=== PATIENT | female | born 1990 | race Caucasian/White ===

== ENCOUNTER 2018-06-11 11:31 | Emergency (ER) | payer OTHER, MEDICAID, SELFPAY ==
[2018-06-11 11:42] VITALS: BP 128/80; PULSE 103; RESP 18; TEMP 36.8; O2SAT 100; BMI 17.4
[2018-06-11 13:02] LABS: Add Manual Diff / Slide Review NO; Basophils Absolute Auto 0 /uL (0-100); Basophils Percent Auto 0.7 % (0-2); Eosinophils Absolute Auto 200 /uL (0-450); Eosinophils Percent Auto 3.5 % (2-4); Hematocrit 44.2 % (36-46); Hemoglobin 14.8 g/dL (12.0-16.0); Lymphocytes Absolute Auto 1300 /uL (1100-4500); Lymphocytes Percent Auto 29.6 % (25-40); Mean Corpuscular HGB Conc 33.4 % (30-36); Mean Corpuscular Hemoglobin 28.3 PG (26-34); Mean Corpuscular Volume 84.8 fL (80-100); Monocytes Absolute Auto 300 /uL (0-900); Monocytes Percent Auto 6.6 % (3-14); Neutrophils Absolute Auto 2700 /uL (1500-7000); Neutrophils Percent Auto 59.6 % (50-75); Platelet Count 243 X10^3/uL (150-400); Red Blood Cell Count 5.21 X10^6/uL (4.0-5.2); Red Cell Distribution Width 14.1 % (11.6-14.8); White Blood Cell Count 4.6 X10^3/uL (4.5-11.0)
[2018-06-11 13:06] LABS: Alanine Aminotransferase 21 IU/L (9-52); Albumin 4.9 g/dL (3.5-5.0); Albumin Globulin Ratio 1.3 (1.0-2.8); Alkaline Phosphatase 44 U/L (38-126); Aspartate Aminotransferase 22 IU/L (14-36); BUN Creatinine Ratio 15.7 (6-22); Bilirubin Total 0.5 mg/dL (0.2-1.3); Blood Urea Nitrogen 11 mg/dL (7-17); Calcium 9.4 mg/dL (8.4-10.2); Carbon Dioxide 26 mmol/L (22-32); Chloride 102 mmol/L (98-107); Estimated Glomerular Filt Rate > 60.0 mL/min (>60); Globulin 3.9 g/dL (1.7-4.1); Glucose 80 mg/dL (70-100); HEMOLYSIS < 15 (0-50); Lipase 83 U/L (23-300); Potassium 3.6 mmol/L (3.4-5.1); Sodium 141 mmol/L (137-145); Total Protein 8.8 g/dL (6.3-8.2)
--- NOTE | 2018-06-11 13:08 | ED_ITS ---
HPI - Abdominal Pain General Chief Complaint: Abdominal Pain Stated Complaint: Severe stomach pains Time Seen by Provider: 06/11/18 12:14 Source: patient Mode of arrival: ambulatory Limitations: no limitations History of Present Illness HPI narrative: Patient presents the emergency department complaining of ongoing nausea, right-sided flank pain, and constipation. She states that the pain has gotten worse since last night, she is concerned about this. Patient has a longstanding history of IBS, and does note that she is dealing with numerous stressors in her life. She states that for the last couple of years, she has had trouble with ongoing nausea, which she has generally been controlled with oral dissolving Zofran. However, patient states that she is having to take the Zofran every day before she eats, in order to keep her food down. Patient states that she seen her primary doctor for this, as well as a specialist specialty she does not know coma for right upper quadrant ultrasounds and colonoscopy, which have not revealed any specific pathology. Patient states she has also had ultrasounds of her pelvis and has thought to possibly fracture sepsis. Patient states she did have an IUD in place which she removed a couple of months ago. She states she has tried oral laxatives and [id number] enemas at home to try to have bowel movement, but his only really had mucus since the 6th of this month. Patient does note that she has not really been eating anything for weeks, because of the nausea. Patient states her primary care physician has referred her to an OBGYN, whom she has not seen yet. Patient is not certain whether she has seen a GI specialist or not. No other complaints at this time. No fevers. No chest pain. Patient states she is otherwise healthy as far she knows. Related Data Previous Rx's Medication Instructions Recorded ketorolac 10 mg PO Q4-6H PRN 7 Days tab 06/11/18 Allergies Allergy/AdvReac Type Severity Reaction Status Date / Time prochlorperazine Allergy Verified 06/11/18 11:46 [From Compazine] Review of Systems Constitutional Denies chills, Denies fever(s), Denies lethargy and Denies weakness Eyes Denies change in vision, Denies eye discharge, Denies irritation and Denies loss of vision ENT Ears, Nose, Mouth, and Throat: Denies change in voice, Denies neck pain and Denies sore throat Cardiovascular Denies chest pain, Denies irregular heart rhythm, Denies lightheadedness, Denies palpitations, Denies dyspnea, Denies dyspnea on exertion and Denies orthopnea Respiratory Denies cough, Denies dyspnea, Denies dyspnea on exertion and Denies wheezing Gastrointestinal Gastrointestinal: Reports abdominal pain, Denies change in bowel habits, Reports constipation, Denies diarrhea, Reports nausea and Reports vomiting Genitourinary Denies hematuria, Denies flank pain, Denies urinary incontinence and Denies urinary urgency Musculoskeletal Denies neck pain Integumentary/Breasts Denies pruritus, Denies erythema, Denies rash and Denies wounds Neurologic Denies confusion, Denies loss of vision and Denies weakness Psychiatric Denies anxiety, Denies confusion, Denies depression, Denies homicidal ideation and Denies suicidal ideation Endocrine Denies palpitations Hematologic/Lymphatic Denies easy bruising Allergic/Immunologic Denies wheezing [facility] Medical History Normal colonoscopy (Acute) Abdominal pain (Acute) Nausea (Acute) IBS (irritable bowel syndrome) (Acute) Constipation (Acute) Social History Smoking Status: Former smoker Social History Smoking Status: Former smoker Exam Initial Vital Signs Initial Vital Signs: Vital Signs Temperature 98.2 F 06/11/18 11:42 Pulse Rate 103 H 06/11/18 11:42 Respiratory Rate 18 06/11/18 11:42 Blood Pressure 128/80 06/11/18 11:42 Pulse Oximetry 100 06/11/18 11:42 Const General: cooperative and well developed Nutritional Appearance: thin Orientation: alert, awake, oriented x3 and not confused [facility] Head: normocephalic and atraumatic Ears: external ears normal and TM's normal bilaterally Nose: external nose normal and No nasal discharge Face and sinus: sinuses nontender, face symmetric, no sinus tenderness and No dry mucous membranes Mouth: oral mucosae normal and moist mucous membranes Teeth and gingiva: dentition normal Throat: tonsils normal and uvula midline Eyes General: appearance normal, both eyes and all related structures Eyelids: eyelids normal Conjunctivae: conjunctivae normal Sclera: sclerae normal Pupils: PERRL EOM: EOM intact bilaterally Neck Neck: normal visual inspection, trachea midline, No lymphadenopathy, No midline deformity and No JVD Lymphatic: No lymphedema Chest Chest: normal inspection of the chest Resp Effort & Inspection: normal respiratory effort, able to speak in complete sentences, no respiratory distress and no use of accessory muscles Auscultation: clear to auscultation bilaterally, no rales, no rhonchi and no wheezes Cardio Rate: regular rate Rhythm: regular rhythm Heart Sounds: no click, no gallops, no murmurs and no rubs Pulses: normal peripheral pulses GI Inspection: non-distended Palpation: soft, no hepatosplenomegaly, No guarding, No pulsatile mass and tender (Mild, right flank) Back/Spine/Pelvis Back: No CVA tenderness Cervical Spine: cervical ROM normal and No pain with cervical ROM Thoracic/Lumbar Spine: thoracic and lumbar spine normal to inspection Skin General: No jaundice and No petechiae Other: Patient has multiple, pimple like lesions in various stages of healing on her face. No track morales noted. Neuro General: alert, oriented x3, gait normal and no focal motor deficits Speech: speech normal Extrem General: full ROM, no clubbing, cyanosis or edema, no pedal edema and no calf tenderness Psych Appearance: well kempt Mental Status: mental status grossly normal Attitude: cooperative Thought Content: normal and suicidality Judgment: judgment good Course Course Narrative: Patient was worked up with labs, UA, CT scan of the abdomen and pelvis. She was treated symptomatically in the emergency department. Patient's workup was unremarkable. I have discussed with the patient that she should probably follow up with GI regarding her ongoing abdominal issues. Patient states she would like to do this and I have given her contact information for GI Clinic at [facility]. Patient also has a follow-up with OBGYN pending. We have discussed home management of symptoms, as well as the usual indications for return. Orders Ordered: Discontinued Medications Hydromorphone HCl (Dilaudid) 0.5 mg IV NOW ONE Stop: 06/11/18 15:14 Last Admin: 06/11/18 16:08 Dose: 0.5 mg Ketorolac Tromethamine (Toradol) 30 mg IV NOW ONE Stop: 06/11/18 12:56 Last Admin: 06/11/18 13:29 Dose: 30 mg Ondansetron HCl (Zofran) 4 mg IV NOW ONE Stop: 06/11/18 12:56 Last Admin: 06/11/18 13:29 Dose: 4 mg Vital Signs - 8 hr 06/11/18 11:42 Temperature 98.2 F Pulse Rate 103 H Respiratory Rate 18 Blood Pressure 128/80 Pulse Oximetry 100 MDM - Abdominal Pain Medical Records Attestation: I reviewed the patient's medical records. Lab Data Attestation: I reviewed the patient's lab results. Result diagrams: 06/11/18 12:04 06/11/18 12:04 Lab Results 06/11/18 06/11/18 Range/Units 12:04 12:04 WBC 4.6 (4.5-11.0) X10^3/uL RBC 5.21 H (4.0-5.2) X10^6/uL Hgb 14.8 (12.0-16.0) g/dL Hct 44.2 (36-46) % MCV 84.8 (80-100) fL MCH 28.3 (26-34) PG MCHC 33.4 (30-36) % RDW 14.1 (11.6-14.8) % Plt Count 243 (150-400) X10^3/uL Neut % (Auto) 59.6 (50-75) % Lymph % (Auto) 29.6 (25-40) % [place] % (Auto) 6.6 (3-14) % Eos % (Auto) 3.5 (2-4) % Baso % (Auto) 0.7 (0-2) % Neut # (Auto) 2700 (2623-4617) /uL Lymph # (Auto) 1300 (0107-7962) /uL [place] # (Auto) 300 (0-900) /uL Eos # (Auto) 200 (0-450) /uL Baso # (Auto) 0 (0-100) /uL Sodium 141 (137-145) mmol/L Potassium 3.6 (3.4-5.1) mmol/L Chloride 102 (98-107) mmol/L Carbon Dioxide 26 (22-32) mmol/L BUN 11 (7-17) mg/dL Creatinine 0.70 (0.52-1.04) mg/dL Estimated GFR > 60.0 (>60) mL/min BUN/Creatinine Ratio 15.7 (6-22) Glucose 80 (70-100) mg/dL Calcium 9.4 (8.4-10.2) mg/dL Total Bilirubin 0.5 (0.2-1.3) mg/dL AST 22 (14-36) IU/L ALT 21 (9-52) IU/L Alkaline Phosphatase 44 (38-126) U/L Total Protein 8.8 H (6.3-8.2) g/dL Albumin 4.9 (3.5-5.0) g/dL Globulin 3.9 (1.7-4.1) g/dL Albumin/Globulin Ratio 1.3 (1.0-2.8) Lipase 83 (23-300) U/L Point of care testing: Point of Care Testing Test Results Negative Urine Dip Bedside Urine Glucose Negative Bedside Urine Bilirubin - Negative Bedside Urine Ketone - Negative Urine Specific [place] 1.010 Bedside Urine Occult Blood - Negative Bedside Urine pH 8.5 Bedside Urine Protein - Negative Bedside Urine Urobilinogen - Negative Bedside Urine Nitrite - Negative Bedside Urine Leukocytes - Negative Esterase Imaging Data CT scan - abdomen: Radiologist's impression: PROCEDURE: CT ABDOMEN PELVIS W CON INDICATIONS: abdominal pain, nausea TECHNIQUE: After the administration of intravenous contrast, 5 mm thick sections acquired from the diaphragm to the symphysis. 5 mm coronal and sagittal reformats were acquired. For radiation dose reduction, the following was used: automated exposure control, adjustment of mA and/or kV according to patient size. COMPARISON: None. FINDINGS: Image quality: Excellent. ABDOMEN: Lung bases: Lung bases are clear. Heart size is normal. Solid organs: Ill-defined low density within the medial segment left hepatic lobe adjacent to the falciform fissure is present, without associated vascular architectural distortion, consistent with fatty infiltration. Liver is otherwise normal in size and enhancement. Gallbladder is within normal limits. Biliary system is non dilated. Pancreas enhances normally. Spleen is normal in size and enhancement. No adrenal nodules. Kidneys demonstrate normal size and enhancement, without hydronephrosis. Peritoneum and bowel: Limited evaluation secondary to lack of oral contrast. The stomach is within normal limits. Multiple fluid-filled small bowel loops are present within the lower abdomen and within the pelvis. Appendix is not seen. No evidence of appendicitis. No pneumoperitoneum. Small amount of free fluid within the pelvis. Nodes and vessels: No retroperitoneal or mesenteric adenopathy by size criteria. Aorta and inferior vena cava are normal in size. Miscellaneous: No ventral hernias. PELVIS: Genitourinary: Bladder wall thickness is normal. Miscellaneous: No inguinal hernias or adenopathy. Bones: No suspicious bony lesions. No vertebral body compression fractures. IMPRESSION: 1. Limited evaluation secondary to lack of oral contrast. 2. Fluid filled small bowel loops, suggestive of gastroenteritis. 3. Appendix not seen. No evidence of appendicitis. 4. Small amount of free fluid within the pelvis, within physiological limits in a menstruating female. Findings could also indicate peritoneal inflammation in the appropriate clinical setting. Dictated by: Debbie Sutherland M.D. on 06/11/2018 at 14:47 Approved by: Debbie Sutherland M.D. on 06/11/2018 at 14:50 Discharge Plan Departure Patient Disposition: Home Clinical Impression: Nausea IBS (irritable bowel syndrome) Qualifiers: Irritable bowel syndrome type: without diarrhea Qualified Code(s): K58.9 - Irritable bowel syndrome without diarrhea Abdominal pain Qualifiers: Abdominal location: right lower quadrant Qualified Code(s): R10.31 - Right lower quadrant pain Discharge Date/Time: 06/11/18 16:31 Interventions: ED Discharge Assessment Last Done: 06/11/18 16:24 Instructions: DI for Abdominal Pain-Adult, DI for Irritable Bowel Syndrome, DI for Nausea -- Adult Activity Restrictions/Additional Instructions: Your labs look good. Your CT scan shows a normal amount of stool in your colon. It is probably taking longer to build up, secondary to your food intake being decreased. You may continue to use the laxatives at home, but you will most likely have a bowel movement on your own without this. The oral nausea medicine can sometimes be constipating, and this may also be a reason that your bowels have seemingly slowed down a bit. You may try a rectal suppository form of nausea medicine and see if this works for you without causing constipation. Please follow up with the metal plater, as recommended. Please also follow up with OB Gynecology, as you have been referred to do. Prescriptions: New ketorolac 10 mg tablet 10 mg PO Q4-6H PRN (Reason: pain) 7 Days RF: 0 Referrals: [facility] Gastroenterology [Provider Group]
[2018-06-11] MEDS: KETOROLAC 60 MG/2 ML VIAL 30 MG IV (13:29)
[2018-06-11] MEDS: ONDANSETRON 4 MG/2 ML INJ IV (13:29)
--- NOTE | 2018-06-11 14:05 | DI.CT.S_ITS ---
PROCEDURE: CT ABDOMEN PELVIS W CON INDICATIONS: abdominal pain, nausea TECHNIQUE: After the administration of intravenous contrast, 5 mm thick sections acquired from the diaphragm to the symphysis. 5 mm coronal and sagittal reformats were acquired. For radiation dose reduction, the following was used: automated exposure control, adjustment of mA and/or kV according to patient size. COMPARISON: None. FINDINGS: Image quality: Excellent. ABDOMEN: Lung bases: Lung bases are clear. Heart size is normal. Solid organs: Ill-defined low density within the medial segment left hepatic lobe adjacent to the falciform fissure is present, without associated vascular architectural distortion, consistent with fatty infiltration. Liver is otherwise normal in size and enhancement. Gallbladder is within normal limits. Biliary system is non dilated. Pancreas enhances normally. Spleen is normal in size and enhancement. No adrenal nodules. Kidneys demonstrate normal size and enhancement, without hydronephrosis. Peritoneum and bowel: Limited evaluation secondary to lack of oral contrast. The stomach is within normal limits. Multiple fluid-filled small bowel loops are present within the lower abdomen and within the pelvis. Appendix is not seen. No evidence of appendicitis. No pneumoperitoneum. Small amount of free fluid within the pelvis. Nodes and vessels: No retroperitoneal or mesenteric adenopathy by size criteria. Aorta and inferior vena cava are normal in size. Miscellaneous: No ventral hernias. PELVIS: Genitourinary: Bladder wall thickness is normal. Miscellaneous: No inguinal hernias or adenopathy. Bones: No suspicious bony lesions. No vertebral body compression fractures. IMPRESSION: 1. Limited evaluation secondary to lack of oral contrast. 2. Fluid filled small bowel loops, suggestive of gastroenteritis. 3. Appendix not seen. No evidence of appendicitis. 4. Small amount of free fluid within the pelvis, within physiological limits in a menstruating female. Findings could also indicate peritoneal inflammation in the appropriate clinical setting. Dictated by: Debbei Sutherland M.D. on 06/11/2018 at 14:47 Approved by: Debbie Sutherland M.D. on 06/11/2018 at 14:50
[2018-06-11 14:11] VITALS: BP 111/56; PULSE 74; RESP 15; O2SAT 98
[2018-06-11 14:56] VITALS: BP 118/70; PULSE 78; RESP 17; O2SAT 97
[2018-06-11] MEDS: HYDROMORPHONE 1 MG INJ 0.5 MG IV (16:08)
[2018-06-11 16:24] VITALS: BP 107/70; PULSE 67; PULSE 78; RESP 12; RESP 17; TEMP 37.1; O2SAT 99
== END 2018-06-11 16:31 | disposition home or self-care (01) ==
PROVIDERS: Emergency Provider Emergency Medicine
DX: K58.9 Irritable bowel syndrome, unspecified (principal); R10.31 Right lower quadrant pain
CPT/HCPCS: 36591; 74177; 80053; 81003; 81025; 83690; 85025; 96374; 96375; 99283; 99285; J1170; J1885; J2405; Q9967